=== PATIENT | female | born 1990 | race Two or more races ===

== ENCOUNTER 2024-02-02 08:00 | Day surgery (SDC) | payer MEDICAID, SELFPAY ==
[2024-02-01 12:12] VITALS: BMI 33.9
[2024-02-01 13:36] LABS: Basophils % (Auto) 1 % (0-2.5); Eosinophils # (Auto) 0.1 Thou/mm3 (0.0-0.5); Eosinophils % (Auto) 2 % (0-10); Hematocrit 42.5 % (36.0-46.0); Hemoglobin 14.3 g/dL (12.0-16.0); Immature Granulocytes % (Auto) 0 % (0-0); Immature Granulocytes Auto 0.03 Thou/mm3 (0.00-0.00); Lymphocytes # (Auto) 2.5 Thou/mm3 (1.0-4.8); Lymphocytes % (Auto) 31 % (10-50); Mean Corpuscular HGB Conc 33.6 g/dl (31.0-37.0); Mean Corpuscular Hemoglobin 30.1 pg (25.0-35.0); Mean Corpuscular Volume 90 fL (80-100); Monocytes # (Auto) 0.4 Thou/mm3 (0.0-0.8); Monocytes % (Auto) 5 % (0-12); Neutrophils # (Auto) 4.8 Thou/mm3 (1.8-7.7); Neutrophils % (Auto) 61 % (37-80); Nucleated Red Blood Cell % 0 /100 WBC (0); Platelet Count 209 Thou/mm3 (140-440); Red Blood Count 4.75 Miln/mm3 (4.00-5.20); White Blood Count 7.9 Thou/mm3 (3.6-11.0)
[2024-02-01 13:38] LABS: Anion Gap 6 (7-16); BUN/Creatinine Ratio 13 Ratio (12-20); Beta HCG,Quantitative 1 mIU/mL (<5.0); Blood Urea Nitrogen 10 mg/dL (9-23); Calcium 9.8 mg/dL (8.3-10.6); Carbon Dioxide 28.8 mMol/L (20.0-31.0); Chloride 105 mMol/L (98-107); Creatinine (Component) 0.8 mg/dL (0.6-1.3); Estimated Creatinine Clearance 111.3 mL/min (>60); Glucose 79 mg/dL (74-106); Osmolality,Calculated 277 (275-295); Potassium 4.4 mMol/L (3.4-5.1); Sodium 140 mMol/L (136-145); eGFR > 60 See Note
[2024-02-02] VITALS (7 sets, daily range): BP systolic 108–120; BP diastolic 71–92; PULSE 63–78; RESP 12–19; TEMP 36.2–36.6; O2SAT 96–100; BMI 33.6
--- NOTE | 2024-02-02 10:34 | PD.GYNPROC ---
Operative Note - FLARE STITCHER Procedure Date of procedure: 02/02/24 Procedure Performed: Laparoscopic bilateral salpingectomy Indication: Desires permanent sterilization Pre-Op diagnosis: Desires permanent sterilization Post-Op diagnosis: Desires permanent sterilization Anesthesia type: General Procedure description: Informed consent was obtained patient was taken to the operating room.? General anesthesia was administered and airway was secured.? Patient was now positioned in the dorsal lithotomy [facility] The abdomen and perineum were prepped in the usual sterile fashion and sterile drapes were applied.? The bladder was emptied using a straight catheter.?Attention was now turned to the patient's abdomen.? A 5 mm infraumbilical incision was made using a scalpel.? Laparoscopic entry was accomplished under direct visualization using [employer] laparoscopic trocar.? Once intra-abdominal placement was confirmed pneumoperitoneum was insufflated to 15 mmHg.? The camera was now introduced into the abdomen and a preliminary survey was performed showing normal uterus, tubes and ovaries. A pair of accessory ports were placed 2 cm cephalad and medial to the ASIS after a 5 and 8 mm incisions were done on the right and left side respectively.? The Enseal device was used to perform bilateral salpingectomy in the usual fashion with excellent hemostasis noted . All instruments were now withdrawn.? Pneumoperitoneum was desufflated.? The laparoscopic ports were removed.? The skin was now closed using 4-0 Monocryl in a subcuticular fashion Specimen: left tube and right tube Estimated blood loss (ml): 5 Findings: Normal uterus, tubes, ovaries Complications: none Surgical staff Operation Date: 02/02/24 10:30 Case Staff BEHAVIOR MANAGEMENT SPECIALIST: Abdi Humphrey RN First Assistant: Noni Elizondo Diagnosis Problem List Completed Was Problem List Reviewed/Reconciled?: Yes
--- NOTE | 2024-02-02 10:35 | PD.GYNDS ---
Planned Discharge Date 02/02/24 DS: Providers Provider Primary care physician: Magnus Blevins MD Attending Provider on Admission: Melecio Perry MD Attending Provider on DC: Melecio Perry MD Discharging Provider: Meelcio Perry MD DS: Diagnosis Problem List Completed Was Problem List Reviewed/Reconciled?: Yes Hospital Course Time Spent with Patient Time attestation: Total time spent providing and/or coordinating discharge services: Quality: VTE Deep Vein Thrombosis/Pulmonary Embolism Present on Admission: No Exam - NURSE INFORMATICIST Vital Signs Temp Pulse Resp BP Pulse Ox 97.1 F 63 19 110/77 96 02/02/24 09:31 02/02/24 09:31 02/02/24 09:31 02/02/24 09:31 02/02/24 09:31 Discharge Plan Plan Patient Disposition: HOME (Self Care) Prescriptions/Referrals Prescriptions/Med Rec: No Action No Known Home Medications Referrals: Melecio Perry MD [Physician] - (1-2 weeks) Magnus Blevins MD [Primary Care Provider] - Patient/Caregiver Discharge Instructions Education Materials: Laparoscopic Tubal Sterilization Print Language: Occitan Stand Alone Forms: [employer] Award Info., Patient Portal Info Letter Discharge Order Discharge Orders: Discharge (Routine); Ordered 02/02/24 Ordered By: Melecio Perry
--- NOTE | 2024-02-02 10:38 | PD.GYNDS ---
Planned Discharge Date 02/02/24 DS: Providers Provider Primary care physician: Magnus Blevins MD Attending Provider on Admission: Melecio Perry MD Attending Provider on DC: Melecio Perry MD Discharging Provider: Melecio Perry MD DS: Diagnosis Problem List Completed Was Problem List Reviewed/Reconciled?: Yes Hospital Course Time Spent with Patient Time attestation: Total time spent providing and/or coordinating discharge services: Quality: VTE Deep Vein Thrombosis/Pulmonary Embolism Present on Admission: No Exam - PUBLIC OPINION SURVEY TAKER Vital Signs Temp Pulse Resp BP Pulse Ox 97.1 F 63 19 110/77 96 02/02/24 09:31 02/02/24 09:31 02/02/24 09:31 02/02/24 09:31 02/02/24 09:31 Discharge Plan Plan Patient Disposition: HOME (Self Care) Prescriptions/Referrals Prescriptions/Med Rec: New ibuprofen 800 mg tablet 800 mg PO Q8H 7 Days Qty: 21 0RF Referrals: Melecio Perry MD [Physician] - (1-2 weeks) Magnus Blevins MD [Primary Care Provider] - Patient/Caregiver Discharge Instructions Education Materials: Laparoscopic Tubal Sterilization Print Language: Indonesian Stand Alone Forms: [employer] Award Info., Patient Portal Info Letter Discharge Order Discharge Orders: Discharge (Routine); Ordered 02/02/24 Ordered By: Melecio Perry
--- NOTE | 2024-02-02 10:47 | SUR.PHASEI ---
pt received from OR in recovery bay 1. pt asleep but responds to voice, breathing unlabored on oxymask 6l. v/s stable. pt dressing to abd dermabond x3 cdi. report received from Cesar CAMACHO and Rey BURNETT.
--- NOTE | 2024-02-02 11:04 | SUR.PHASEI ---
pt able to tolerate oral fluids without difficulty swallowing or nausea/vomiting.
--- NOTE | 2024-02-02 11:47 | SUR.PHASEII ---
pt awake and alert, breathing unlabored on room air. v/s stable. pt dressing to abd dermabond x3 cdi. pt able to ambulate to wheelchair with steady gait. d/c instructions given with Confucianist over the phone (child presence) and with pt in room, using spot welder Efren Lundberg, all questions answered. pt d/c via wheelchair with all belongings.
== END 2024-02-02 11:47 | disposition home or self-care (01) ==
PROVIDERS: PCP Family Medicine; Referring Provider Obstetrics & Gynecology; Visit Provider Obstetrics & Gynecology
PROC: (CPT 58720; principal; 2024-02-02 10:30)
DX: Z30.2 Encounter for sterilization (principal)
CPT/HCPCS: 58661; 36415; 80048; 84702; 85025; 86850; 86900; 86901; A4649; J0131; J2250; J2704; J3010; J3490; J1920